=== PATIENT | female | born 1960 | race Caucasian/White ===

== ENCOUNTER 2017-11-26 13:28 | Observation (INO) | payer BC, MEDICAID ==
--- NOTE | 2017-11-26 14:32 | ED ---
Palpitations / Dysrhythmia - HPI Summary HPI Summary: This patient is a 57 year old F presenting to [facility] transferred from [facility] with a chief complaint of palpitations this 0200 morning. Pt felt throbbing in her neck, with no sx in chest. PMHx anxiety, SVT, HTN. She denies CP, or any sx currently. Sx improved after being given adenosine before transfer. She endorses that she was transferred because her troponin level went from .04 upon arrival to .2 after follow up. Rx Lopressor. Pt denies having taken any of her meds today. 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 She states it affects her waist down; she can move left leg but has no sensation in it. She cannot move her right leg but is hypersensitive in it, except to temperature. - History of Current Complaint Chief Complaint: EDChestPainROMI Time Seen by Provider: 11/26/17 14:01 Hx Obtained From: Patient Onset/Duration: Gradual Onset, Lasting Hours Timing: Constant Severity Initially: Moderate Severity Currently: None Character: Pounding Aggravating: Nothing Alleviating: Medication - Adenosine - Allergy/Home Medications Allergies/Adverse Reactions: Allergies Allergy/AdvReac Type Severity Reaction Status Date / Time amitriptyline [From Elavil] Allergy Shakes Verified 11/26/17 13:40 sertraline [From Zoloft] Allergy Edema Verified 11/26/17 13:40 trospium Allergy Unknown Verified 11/26/17 13:41 Reaction Details Home Medications: Home Medications Aspirin EC TAB* [Ecotrin EC Low Dose 81 MG*] 81 mg PO DAILY 11/26/17 [History Confirmed 11/26/17] Baclofen TAB* [Lioresal TAB*] 20 mg PO TID 11/26/17 [History Confirmed 11/26/17 ] Calcium Carbonate/Vitamin D3 [Calcium/Vitamin D] 1 cap PO DAILY 11/26/17 [ History Confirmed 11/26/17] Docusate CAP* [Colace Cap*] 100 mg PO BID 11/26/17 [History Confirmed 11/26/17] Ibuprofen TAB* [Motrin TAB* 800 MG] 800 mg PO TID 11/26/17 [History Confirmed ] Metoprolol Tartrate TAB* [Lopressor TAB*] 25 mg PO BID 11/26/17 [History Confirmed 11/26/17] Omeprazole CAP* [Prilosec CAP* 20 MG] 20 mg PO DAILY 11/26/17 [History Confirmed 11/26/17] Oxybutynin TAB* [Ditropan TAB*] 10 mg PO BID 11/26/17 [History Confirmed ] Pregabalin CAP(*) [Lyrica CAP(*)] 150 mg PO TID 11/26/17 [History Confirmed 05/04] Venlafaxine EXT RELEASE CAP* [Effexor Xr CAP*] 75 mg PO BID 11/26/17 [History Confirmed 11/26/17] oxyCODONE/Acetamin 5/325 MG* [Percocet 5/325 TAB*] 1 tab PO Q6H PRN 11/26/17 [ History Confirmed 11/26/17] PMH/Surg Hx/FS Hx/Imm Hx Cardiovascular History: Reports: Hx Hypertension, Hx Supraventricular Ventricular Tachycardia Musculoskeletal History: Reports: Hx Back Problems Sensory History: Denies: Hx Legally Blind Opthamlomology History: Denies: Hx Legally Blind EENT History: Denies: Hx Deafness Neurological History: Reports: Hx Spinal Cord Injury - paraplegic Psychiatric History: Reports: Hx Anxiety Infectious Disease History: No Infectious Disease History: Denies: Traveled Outside the [place] in Last 30 Days - Family History Known Family History: Positive: Cardiac Disease, Hypertension, Diabetes, Other - cancer - Social History Occupation: Disabled Alcohol Use: Rare Substance Use Type: Reports: None Smoking Status (MU): Never Smoked Tobacco Review of Systems Negative: Fever Positive: Palpitations. Negative: Chest Pain Positive: Decreased ROM - RLE no movement Positive: Numbness - LLE total All Other Systems Reviewed And Are Negative: Yes Physical Exam - Summary Physical Exam Summary: Appearance: The patient is well-nourished in no acute distress and in no acute pain. Skin: The skin is warm and dry and skin color reflects adequate perfusion. HEENT: The head is normocephalic and atraumatic. The pupils are equal and reactive. The conjunctivae are clear and without drainage. Nares are patent and without drainage. Mouth reveals moist mucous membranes and the throat is without erythema and exudate. The external ears are intact. The ear canals are patent and without drainage. The tympanic membranes are intact. Neck: The neck is supple with full range of motion and non-tender. There are no carotid bruits. There is no neck vein distension. Respiratory: Chest is non-tender. Lungs are clear to auscultation and breath sounds are symmetrical and equal. Cardiovascular: Heart is regular rate and rhythm. There is no murmur or rub auscultated. There is no peripheral edema and pulses are symmetrical and equal. Abdomen: The abdomen is soft and non-tender. There are normal bowel sounds heard in all four quadrants and there is no organomegaly palpated. Musculoskeletal: There is no back tenderness noted. Extremities are non-tender with full range of motion. There is good capillary refill. There is no peripheral edema or calf tenderness elicited. Neurological: Patient is alert and oriented to person, place and time. Bilateral upper extremities move well, as well as LLE, RLE does not move. Cranial nerves are grossly intact. Psychiatric: The patient has an appropriate affect and does not exhibit any anxiety or depression. Triage Information Reviewed: Yes Vital Signs On Initial Exam: Initial Vitals Temp Pulse Resp BP Pulse Ox 97.7 F 97 16 151/93 97 11/26/17 13:37 11/26/17 13:37 11/26/17 13:37 11/26/17 13:37 11/26/17 13:37 Vital Signs Reviewed: Yes Diagnostics - Vital Signs Vital Signs Temp Pulse Resp BP Pulse Ox 11/26/17 13:43 96 22 151/80 97 11/26/17 13:37 97.7 F 97 16 151/93 97 - Laboratory Lab Statement: Any lab studies that have been ordered have been reviewed, and results considered in the medical decision making process. - EKG 1347 Cardiac Rate: NL - 83 EKG Rhythm: Sinus Rhythm Ectopy: None EKG Interpretation: No STEMI, horizontal axis deviation Course/Dx - Course Course Of Treatment: Ms. Tavares had several hours of palpitations which she attributes to SVT. She has had at least one episode of SVT in the past. She was relatively asymptomatic with this one but went to [facility] and was given adenosine Cardizem and Lopressor. Her initial troponin came back at 0.04 and a repeat troponin was 0.214. They spoke with Dr. Salinas and transferred her here to the emergency department. A repeat troponin here in the emergency department was 0.30. She is asymptomatic and feeling fine at this point. The hospitalist was contacted for consultation and admission. - Diagnoses Provider Diagnoses: SVT (supraventricular tachycardia), Elevated troponin - Physician Notifications Discussed Care Of Patient With: Reggie Tao Time Discussed With Above Provider: 14:22 Instructed by Provider To: Other - Accepted admission Discharge - Sign-Out/Discharge Documenting (check all that apply): Patient Departure - admit - Discharge Plan Condition: Fair Disposition: ADMITTED TO [facility] - Billing Disposition and Condition Condition: FAIR Disposition: Admitted to [facility]
[2017-11-26] MEDS ORDERED: Acetaminophen TAB* 325 MG PO PRN (14:53)
[2017-11-26] MEDS ORDERED: Ondansetron INJ* 2 MG/ML VIAL IV PRN (14:53)
[2017-11-26] MEDS ORDERED: Perflutren Lipid Microsphere* 3 ML VIAL ONE (15:11)
[2017-11-26] MEDS ORDERED: oxyCODONE/Acetamin 5/325 MG* TAB PO PRN (15:50)
[2017-11-26] MEDS ORDERED: Metoprolol Tartrate TAB* 25 MG PO ONE (15:51)
[2017-11-26] MEDS ORDERED: Potassium Chlor TAB* 20 MEQ TAB.ER PO ONE (16:00)
--- NOTE | 2017-11-26 16:04 | ECHO ---
Patient: RANDY BAH [facility] Rec#: [id number] : 1960 Date: 11/26/2017 Age: 57y Height: 170.18 cm / 67.0 in Weight: 92.99 kg / 204.9 lbs Sex: F BSA: 2.04 Room#: -18 Admit Date#: 11/26/2017 Type: Inpatient Referring: Tony Avilez MD Reading: Vaughn Salinas MD Dispatcher Maintenance Service[facility]ch[facility] Indication: SVT, palpitations. BP: 151/80 HR: 93 Rhythm: NSR Findings History: HTN, SVT, paraplegia. Technical Comments: The study is technically limited due to poor apical windows. Completed at 1600. Left Ventricle: The left ventricular chamber size is normal. Global left ventricular wall motion and contractility are within normal limits. The left ventricle appears hyperdynamic. The estimated ejection fraction is greater than 65%. There is no consistent Doppler evidence of clinically significant diastolic dysfunction. Left Atrium: The left atrial chamber size is normal. Right Ventricle: The right ventricular cavity size is normal. The right ventricular global systolic function is normal. Right Atrium: The right atrial cavity size is normal. Aortic Valve: The aortic valve is trileaflet. There is no evidence of aortic valve thickening. There is no evidence of aortic regurgitation. There is no evidence of aortic stenosis. Mitral Valve: The mitral valve leaflets appear normal. There is a trace of mitral regurgitation. Tricuspid Valve: The tricuspid valve leaflets are normal. There is trace tricuspid regurgitation. Unable to estimate the right ventricular systolic pressure. Pulmonic Valve: The pulmonic valve appears normal. There is a trace pulmonic regurgitation. There is no pulmonic stenosis. Pericardium: There is no significant pericardial effusion. A pericardial fat pad is visualized. Aorta: There is no dilatation of the ascending aorta. There is no dilatation of the aortic arch. The aortic root is normal in size. Pulmonary Artery: The main pulmonary artery is not well visualized. Venous: The inferior vena cava appears normal in size. There is a greater than 50% respiratory change in the inferior vena cava dimension. Contrast: Definity was used to optimize study. 3 mL of diluted Definity was utilized. Intravenous contrast was used to enhance endocardial border definition. Conclusions The left ventricle appears hyperdynamic. The estimated ejection fraction is greater than 65%. Global left ventricular wall motion and contractility are within normal limits. Normal cardiac chamber sizes. Functionally benign heart valves. There is no prior echocardiogram available to compare with at this time. Measurements Name Value Normal Range RVIDd (AP) 2D 2.8 cm (0.9 - 2.6) RVDdMajor (2D) 2.3 cm (2.2 - 4.4) RAd ISD 4CH 3.6 cm (3.4 - 4.9) RA (A4C)W 2.8 cm (2.9 - 4.6) IVSd (2D) 0.9 cm (0.6 - 1) LVPWd (2D) 1 cm (0.6 - 1) LVIDd (2D) 3.7 cm (3.6 - 5.4) LVIDs (2D) 2.1 cm - LV FS (2D) 43 % (25 - 45) Aortic Annulus 1.7 cm (1.4 - 2.6) Ao root diameter (2D) 3.2 cm (2.1 - 3.5) Ascending Ao 3.1 cm (2.1 - 3.4) Aortic arch 2.4 cm (1.8 - 3.4) LA dimension (AP) 2D 3.1 cm (2.3 - 3.8) LAd ISD 4CH 4.1 cm (2.9 - 5.3) LA ISD 4CH W 3.3 cm (2.5 - 4.5) Name Value Normal Range LA ESV SP 4CH (A/L) 16 ml - LA ESV SP 2CH (A/L) 38 ml - LA ESV BP (A/L) 27 ml - LA ESV BP (A/L) index 13 ml/m2 - LA ESV SP 4CH (MOD) 15 ml - LA ESV SP 2CH (MOD) 36 ml - Name Value Normal Range MV E-wave Vmax 0.72 m/sec - MV deceleration time 174.8 msec - MV A-wave Vmax 0.55 m/sec - MV E:A ratio 1.29 ratio - LV septal e' Vmax 0.05 m/sec - LV lateral e' Vmax 0.05 m/sec - LV E:e' septal ratio 14.4 ratio - LV E:e' lateral ratio 14.4 ratio - Name Value Normal Range AV Vmax 1.2 m/sec - AV VTI 22.89 cm - AV peak gradient 5.45 mmHg - AV mean gradient 4.08 mmHg - LVOT Vmax 0.95 m/sec - LVOT VTI 18.41 cm - LVOT peak gradient 3.64 mmHg - LVOT mean gradient 2 mmHg - CAMILLA Vmax 0.6 m/sec - Name Value Normal Range IVC diameter 2 cm - Name Value Normal Range PV Vmax 0.8 m/sec - PV peak gradient 2.58 mmHg -
[2017-11-26] MEDS ORDERED: Magnesium Sulfate IV* 2 GM in NS 0.9% 100 ML* 100 ML IV ONE (17:22)
--- NOTE | 2017-11-26 17:27 | HP ---
CC: Dr. Pak * [facility] MEDICINE HISTORY AND PHYSICAL: DATE OF ADMISSION: 11/26/17 PRIMARY CARE PHYSICIAN: Dr. Pak. ATTENDING PHYSICIAN: Dr. Ramos Tao * (dictation provided by Jenifer Rodriguez NP). CHIEF COMPLAINT: Rapid heart rate. HISTORY OF PRESENT ILLNESS: Ms. Tavares is a 57-year-old female with past medical history of paroxysmal supraventricular tachycardia and spinal injury with paraplegia and hypertension, who presents to the hospital with concern for elevated heart rate in transfer from [facility]. Ms. Tavares states that she was feeling her normal state of health until this morning. She did recently treat herself for a urinary tract infection. She straight caths herself at home and will check her own urine and has Cipro available as needed for recurrent urinary tract infections. She completed treatment for this and has had no further symptoms. This morning, at about 4 a.m., she awoke with a sensation that her heart was racing. She has had this happened before and was suspicious that this was SVT. She ultimately went to the emergency room at [facility] for evaluation. While there, she was given adenosine, Cardizem, and metoprolol and they were able to return her to normal sinus rhythm. The patient states she is feeling well at this time. However, at [facility], she did have an elevated troponin that went to 0.214. Her case was discussed with the emergency room providers here and with Dr. Salinas from Cardiology and plans were made for the patient to be transferred due to this elevated troponin. In the emergency room here, the patient's third troponin now is 0.31. She is completely asymptomatic. She denies chest pain. She remains in normal sinus rhythm. The remainder of her labs from [facility] showed a potassium level of 3.4. Her magnesium level was not checked, is being added on now. PAST MEDICAL HISTORY: 1. History of paraplegia secondary to cervical and thoracic spinal injuries over the course of a couple of decades. 2. Hysterectomy. 3. Hypertension. 4. History of paroxysmal SVT. 5. Anxiety. 6. Depression. MEDICATIONS: 1. Calcium with vitamin D 1 cap p.o. daily. 2. Aspirin 81 mg p.o. daily. 3. Baclofen 20 mg p.o. t.i.d. 4. Docusate 100 mg p.o. b.i.d. 5. Ibuprofen 800 mg p.o. t.i.d. 6. Metoprolol tartrate 25 mg p.o. b.i.d. 7. Omeprazole 20 mg p.o. daily. 8. Oxybutynin 10 mg p.o. b.i.d. 9. Oxycodone with acetaminophen 5/325 one tab p.o. q.6 hours p.r.n. 10. Pregabalin 150 mg p.o. t.i.d. 11. Venlafaxine XR 75 mg p.o. b.i.d. ALLERGIES: To AMITRIPTYLINE, SERTRALINE, and TROSPIUM. FAMILY HISTORY: The patient reports her mom related to cirrhosis and had hepatitis C at the age of 64. Dad had diabetes, heart problems, and lung problems as well as cancer and at age 77. SOCIAL HISTORY: No reported alcohol, tobacco, or drug use. She states her will be the healthcare proxy. REVIEW OF SYSTEMS: A 14-point review of systems was completed with Ms. Tavares and all those not mentioned above were negative. PHYSICAL EXAMINATION GENERAL: Ms. Tavares is lying in the bed, in no acute distress with her at the bedside. VITAL SIGNS: Temperature 97.7, pulse rate 97, respiratory rate 16, O2 saturation 97% on room air, blood pressure 151/93. LUNGS: Clear to auscultation bilaterally with no accessory muscle use and good aeration. HEART: S1, S2. No murmur, rub, or gallop and regular. ABDOMEN: Soft, nontender with bowel sounds positive x4. EXTREMITIES: No cyanosis. No edema. NEURO: She is alert. She is oriented x3. She has movement of the left lower extremity +2 to +3. She has no movement of the right lower extremity. She states she is not able to stand and uses wheelchair for all mobility. She has good movement of bilateral upper extremities +5. There is no facial asymmetry. Extraocular movements are intact. SKIN: Intact. DIAGNOSTIC STUDIES/LAB DATA: Troponin here is 0.31. Labs at [facility] showed sodium 143, potassium 3.4, chloride 105, serum bicarbonate 28, BUN 9, creatinine 0.8, glucose 166. White blood cell count 8, hemoglobin 13.8, hematocrit 37.9, and platelets 277. Her urinalysis was positive there with positive nitrite, 2+ leuk esterase, positive wbc's, and 2+ bacteria. Chest x-ray shows no acute process. ASSESSMENT AND PLAN: Ms. Tavares is a 57-year-old female with past medical history of paraplegia related to spinal injuries, frequent urinary tract infections secondary to straight catheterization, hypertension and paroxysmal supraventricular tachycardia, who presented to [facility] with rapid heart rate, found to be in supraventricular tachycardia. She was able to be returned to normal sinus rhythm there, but due to elevated troponin of 0.2, the patient was transferred to [facility] for further evaluation and treatment. Our recommendations and plan are as follows. The patient will be placed on observation status. 1. Supraventricular tachycardia. The patient is currently in normal sinus rhythm. She will continue on telemetry monitoring. I will replete her potassium and I am checking a magnesium. The patient will continue on her home metoprolol. I question whether or not her supraventricular tachycardia could be related to urinary tract infection. She shows no evidence of sepsis otherwise. 2. Urinary tract infection. The patient states she recently treated herself at home with Cipro. Plan to treat with Bactrim now and monitor urine cultures, which will be available through [facility]. 3. Hypertension. Plan to continue metoprolol. 4. Anxiety and depression. Continue venlafaxine. 5. Chronic back pain and paraplegia. Continue home oxycodone and baclofen. 6. Code status is full code. TIME SPENT: Approximately 60 minutes were spent on the admission of this patient, more than half time was spent with her at the bedside reviewing the events leading up to this hospitalization, performing the physical examination, and reviewing my plan of care. JENIFER RODIRGUEZ, JUAN DIEGO [id number]/[facility] #: [id number] OBUDLIO
[2017-11-26] MEDS: Baclofen TAB* 10 MG PO SCH ×2 (18:01→21:04)
[2017-11-26] MEDS: Venlafaxine EXT RELEASE CAP* 75 MG PO SCH ×2 (18:01→21:04)
[2017-11-26] MEDS: Pregabalin CAP(*) 50 MG PO SCH ×2 (18:01→21:05)
[2017-11-26] MEDS: Sulfamethox/Trimethoprim DS 800/160* TAB PO SCH (21:02)
[2017-11-26] MEDS: Ibuprofen TAB* 800 MG PO SCH (21:03)
[2017-11-26] MEDS: Oxybutynin TAB* 5 MG PO SCH (21:03)
[2017-11-26] MEDS: Metoprolol Tartrate TAB* 25 MG PO SCH (21:04)
[2017-11-26] MEDS: Docusate CAP* 100 MG PO SCH (21:05)
[2017-11-26] MEDS: Heparin VIAL(*) 5000 UNITS/ML VIAL (FIVE THOUSAND) SUBCUT SCH (21:06)
[2017-11-27] MEDS: Heparin VIAL(*) 5000 UNITS/ML VIAL (FIVE THOUSAND) SUBCUT SCH ×2 (05:58→14:40)
[2017-11-27 07:30] LABS: EGFR Non-African American 110.1 (>60)
[2017-11-27] MEDS: Ibuprofen TAB* 800 MG PO SCH ×2 (08:15→14:40)
[2017-11-27] MEDS: Oxybutynin TAB* 5 MG PO SCH (08:15)
[2017-11-27] MEDS: Venlafaxine EXT RELEASE CAP* 75 MG PO SCH (08:15)
[2017-11-27] MEDS: Metoprolol Tartrate TAB* 25 MG PO SCH (08:15)
[2017-11-27] MEDS: Pregabalin CAP(*) 50 MG PO SCH ×2 (08:15→14:40)
[2017-11-27] MEDS: Baclofen TAB* 10 MG PO SCH ×2 (08:16→14:40)
[2017-11-27] MEDS: Sulfamethox/Trimethoprim DS 800/160* TAB PO SCH (08:16)
[2017-11-27] MEDS: Docusate CAP* 100 MG PO SCH (08:16)
[2017-11-27] MEDS ORDERED: Aspirin EC TAB* 81 MG TAB.EC PO SCH (09:00)
[2017-11-27] MEDS ORDERED: Omeprazole CAP* 20 MG PO SCH (09:00)
[2017-11-27 09:05] LABS: ABS Basophils 0 10^3/ul (0-0.2); ABS Eosinophils 0.2 10^3/ul (0-0.6); ABS Lymphocytes 2.2 10^3/ul (1.0-4.8); ABS Monocytes 0.5 10^3/ul (0-0.8); ABS Nucleated RBC 0 10^3/ul; Eosinophil % 2.2 % (0-6); Hematocrit 35 % (35-47); Hemoglobin 11.8 g/dl (12.0-16.0); Lymphocyte % 32.3 % (25-47); Mean Corpuscular HGB Conc 34 g/dl (31-36); Mean Corpuscular Hemoglobin 29 pg (27-31); Mean Corpuscular Volume 86 fL (80-97); Mean Platelet Volume 8.6 um3 (7.4-10.4); Nucleated Red Blood Cells % 0; Platelet Count 204 10^3/ul (150-450); Red Blood Count 4.05 10^6/ul (4.00-5.40); Red Cell Distribution Width 15 % (10.5-15); White Blood Count 6.9 10^3/ul (3.5-10.8)
[2017-11-27] MEDS ORDERED: Regadenoson* 0.4 MG/5 ML SYRINGE ONE (12:27)
[2017-11-27] MEDS ORDERED: Aminophylline IV* 25 MG/ML 10 ML VIAL ONE (12:28)
--- NOTE | 2017-11-27 14:44 | RAD ---
HISTORY: SVT, elevated troponin COMPARISONS: None TECHNIQUE: A 1 day stress/rest myocardial perfusion study was performed, with pharmacologic stress. The stress portion was monitored by Dr. Salinas. Gated SPECT imaging was performed, without CT-based attenuation correction secondary to patient physical limitation DOSE: Stress: Technetium 99m tetrofosmin, 26 millicuries, injected at 1:20 PM on November 27, 2017 Rest: Technetium 99m tetrofosmin, 10.34 millicuries, injected at 8:05 AM on November 27, 2017 Pharmacologic agent: Lexiscan FINDINGS: CARDIAC MONITORING: No Lexiscan induced myocardial ischemia with stress EF: 84% TID: 1.89 MOTION: Normal motion, with normal wall thickening. PERFUSION: There are no fixed or reversible perfusion defects. OTHER: None IMPRESSION: WHILE THERE ARE NO FIXED OR REVERSIBLE PERFUSION DEFECTS, THE TID. RATIO IS ELEVATED WHICH CAN BE SEEN WITH THREE-VESSEL DISEASE. ASSESSMENT: INTERMEDIATE RISK. Based on imaging criteria from ACC/AHA 2002. Guideline Update for the Management of Patient's with Chronic Stable Angina, table 23. Noninvasive Risk Stratification.
[2017-11-27 16:07] VITALS: BP 120/61
--- NOTE | 2017-11-28 02:32 | DS ---
ADDENDUM NOW INCLUDED ON THIS REPORT CC: Dr. Randy Pak; Dr. Salinas * DISCHARGE SUMMARY: DATE OF ADMISSION: 11/26/17 DATE OF DISCHARGE: 11/27/17 PRIMARY CARE PROVIDER: Dr. Randy Pak. DISCHARGE DIAGNOSIS: Paroxysmal supraventricular tachycardia that was treated at [facility] and converted to sinus rhythm after treatment with adenosine, Cardizem and metoprolol. SECONDARY DIAGNOSES: 1. History of paraplegia secondary to spinal cord injuries. 2. History of hysterectomy. 3. Hypertension. 4. History of paroxysmal supraventricular tachycardia in the past. 5. Anxiety. 6. Depression. MEDICATIONS AT DISCHARGE: Unchanged from admission and include: 1. Aspirin 81 mg daily. 2. Baclofen 20 mg 3 times a day. 3. Calcium carbonate with vitamin D 1 tablet daily. 4. Colace 100 mg b.i.d. 5. Motrin 800 mg up to 3 times a day p.r.n. 6. Metoprolol tartrate 25 mg b.i.d. 7. Prilosec 20 mg daily. 8. Ditropan 10 mg b.i.d. 9. Oxycodone with acetaminophen 1 tablet every 6 hours p.r.n. 10. Lyrica 150 mg 3 times a day. 11. Effexor XR 75 mg b.i.d. LABORATORY DATA AND STUDIES PERFORMED DURING THE HOSPITAL STAY: Included: The patient's D-dimer was below 200. The patient's sodium on the day of discharge was 141, potassium 4.1, chloride 110, carbon dioxide 25, BUN 10, creatinine 0.56. The patient's troponin at its peak was 0.31 at admission. The patient's magnesium at discharge was 2.2. C-reactive protein was 11.2. TSH is pending at the time of dictation. The patient's cardiac stress test; the EKG portion of the stress test was unremarkable. The nuclear radiological images show, impression: "While there are no fixed or reversible perfusion defects, the TID ratio is elevated, which can be seen with 3-vessel disease." Please also note that the patient's EF with stress was 84%. HOSPITALIZATION COURSE: Suad Tavares is a 57-year-old paraplegic female who started feeling palpitations on 11/26/17. She presented to [facility] for evaluation. There, she was treated with Cardizem, adenosine and metoprolol and eventually converted to sinus rhythm. By that time, she was already ready for transfer to [facility] for further cardiologic evaluation. While at [facility], she was noted to have elevated troponins, but never complained of chest pain and at her presentation with palpitations to [facility], she also denied chest pain. Her D-dimer was negative and other workup was pretty unremarkable. Her initial magnesium level was slightly lower and that was repleted intravenously. I am still awaiting the patient's TSH level that is pending at the time of dictation. Due to elevated troponins, the patient had a cardiac stress test which showed no reversible defect, but elevated TID index. I spoke about it with Dr. Salinas who stated that despite TID index elevated, the patient's EF is within normal limits and due to that the likelihood of 3-vessel coronary artery disease is very low. At this point, the patient is going to be discharged home with recommendation to follow up with primary care provider in 4 to 7 days and to try to abstain from caffeine as well as alcohol. I also suggested reevaluation for obstructive sleep apnea. Please also note that the patient had a cardiac echocardiogram performed, which showed EF of 65% with hyperdynamic left ventricle and normal cardiac chamber sizes and left ventricular wall motion and contractility within normal limits and functionally benign heart valves. PHYSICAL EXAMINATION AT DISCHARGE: Unchanged from admission. DISCHARGE SUMMARY: ADDENDUM: PRIMARY CARE PROVIDER: Dr. Pak. Please also note that the patient had abnormal urinalysis in [facility] and was started on Bactrim during her hospital stay. This is going to be continued for a total of 7 days and additional medications at discharge will include Bactrim DS 1 tablet p.o. b.i.d. for 7 days total. [id number]/[facility] #: [id number] A- [id number]/[facility] #: [id number] OBDULIO
--- NOTE | 2017-11-28 03:39 | DS ---
DISCHARGE SUMMARY: ADDENDUM: PRIMARY CARE PROVIDER: Dr. Pak. Please also note that the patient had abnormal urinalysis in [facility] and was started on Bactrim during her hospital stay. This is going to be continued for a total of 7 days and additional medications at discharge will include Bactrim DS 1 tablet p.o. b.i.d. for 7 days total. [id number]/[facility] #: [id number] MTDD
== END 2017-11-27 16:30 | disposition home or self-care (01) ==
LOC: ED 13:28 → MEDTELE 14:50
PROVIDERS: ADMIT Internal Medicine; ATTEND Internal Medicine
DX: I47.1 Supraventricular tachycardia (principal); N39.0 Urinary tract infection, site not specified; G82.20 Paraplegia, unspecified; Z90.710 Acquired absence of both cervix and uterus; I10 Essential (primary) hypertension; F41.8 Other specified anxiety disorders; Z79.82 Long term (current) use of aspirin
CPT/HCPCS: 36415; 78452; 80048; 83735; 84443; 84484; 85025; 85379; 86140; 93005; 93017; 93306; 96374; 99284; A9270-GY; A9502; C8929; G0378; J0280; J1644; J2785; J3475